=== PATIENT | female | born 1940 | race Caucasian/White ===

== ENCOUNTER 2021-04-08 08:58 | Emergency (ER) | payer MEDICARE ==
[~2021-04-08] VITALS: Ht 165.1 cm; Wt 57.6 kg
[2021-04-08] MEDS ORDERED: IV NORMAL SALINE 1000ML BAG 1,000 ML IV ONE (09:30)
[2021-04-08] MEDS ORDERED: ONDANSETRON PF 4 MG/2 ML VIAL. IVP ONE (09:30)
[2021-04-08] MEDS ORDERED: MECLIZINE HCL 12.5 MG TABLET. PO ONE (09:30)
[2021-04-08 09:53] LABS: BASO % 1 % (0-3); EOS # 0.2 x10^3/uL (0.0-0.7); EOS % 4 % (0-3); HEMATOCRIT 38.6 % (36.0-47.0); HEMOGLOBIN 12.7 g/dL (12.0-15.5); LYMPH # 1.6 x10^3/uL (1.0-4.8); LYMPH % 26 % (24-48); MEAN CORPUSCULAR HEMOGLOBIN 28 pg (25-35); MEAN CORPUSCULAR HGB CONC 33 g/dL (31-37); MEAN CORPUSCULAR VOLUME 85 fL (79-100); MONO # 0.5 x10^3/uL (0.0-1.1); MONO % 8 % (0-9); NEUT # 3.7 x10^3/uL (1.8-7.7); NEUT % 62 % (31-73); PLATELET COUNT 219 x10^3/uL (140-400); RED BLOOD COUNT 4.56 x10^6/uL (3.50-5.40); RED CELL DISTRIBUTION WIDTH 13.4 % (11.5-14.5)
[2021-04-08 10:02] LABS: CALCIUM 8.6 mg/dL (8.5-10.1); CREATININE 0.7 mg/dL (0.6-1.0); GFR 80.9; POTASSIUM 3.8 mmol/L (3.5-5.1)
[2021-04-08 10:08] LABS: ALBUMIN 3.4 g/dL (3.4-5.0); ALBUMIN/GLOBULIN RATIO 0.9 (1.0-1.7); TOTAL BILIRUBIN 0.9 mg/dL (0.2-1.0); TOTAL PROTEIN 7.4 g/dL (6.4-8.2)
--- NOTE | 2021-04-08 10:08 | PHYS DOC ---
General Adult EDM: Chief Complaint: DIZZY/LIGHT HEADED HPI: HPI: Patient is a 80 year old female who presents with dizziness and nausea since last night. Patient states that she was getting out of her car when she noticed she was off balance. Patient states "I feel like I am spinning". Reports that standing makes symptoms worse. Patient denies anything making the symptoms better. Denies taking anything at home for symptoms. Denies chest pain, shortness of breath, pain. Denies recent illness. Patient states "I had vertigo 5 years ago and this feels very similar to then". Patient is alert and oriented. Patient has history of hypothyroidism. Review of Systems: Review of Systems: ROS At least 10 ROS systems have been reviewed and are negative except as documented in the HPI. General: Negative except as outlined in HPI above. Skin: Negative except as outlined in HPI above. HEENT: Negative except as outlined in HPI above. Neck: Negative except as outlined in HPI above. Respiratory: Negative except as outlined in HPI above.. Cardiovascular: Negative except as outlined in HPI above. Abdomen: Negative except as outlined in HPI above. : Negative except as outlined in HPI above. Back/MSK: Negative except as outlined in HPI above. Neuro: Negative except as outlined in HPI above. Psych: Negative except as outlined in HPI above. Heart Score: C/O Chest Pain: No Risk Factors: Risk Factors: DM, Current or recent (<one month) smoker, HTN, HLP, family history of CAD, obesity. Risk Scores: Score 0 - 3: 2.5% MACE over next 6 weeks - Discharge Home Score 4 - 6: 20.3% MACE over next 6 weeks - Admit for Clinical Observation Score 7 - 10: 72.7% MACE over next 6 weeks - Early Invasive Strategies Current Medications: Current Medications Medications (Trade) Dose Ordered Sig/Jesus Start Time Stop Time Status Last Admin Dose Admin Meclizine HCl (Antivert) 25 mg 1X ONCE 04/08/21 09:30 04/08/21 09:31 UNV Ondansetron HCl (Zofran) 4 mg 1X ONCE 04/08/21 09:30 04/08/21 09:31 UNV Sodium Chloride 1,000 ml @ 1,000 mls/hr 1X ONCE 04/08/21 09:30 04/08/21 10:29 UNV Physical Exam: PE: Constitutional: Well developed, well nourished, no acute distress, non-toxic appearance. [] HENT: Normocephalic, atraumatic, bilateral external ears normal, oropharynx moist, no oral exudates, nose normal. [] Eyes: PERRLA, EOMI, conjunctiva normal, no discharge. [] Neck: Normal range of motion, no tenderness, supple, no stridor. [] Cardiovascular:Heart rate regular rhythm, no murmur [] Lungs & Thorax: Bilateral breath sounds clear to auscultation [] Abdomen: Bowel sounds normal, soft, no tenderness, no masses, no pulsatile masses. [] Skin: Warm, dry, no erythema, no rash. [] Back: No tenderness, no CVA tenderness. [] Extremities: No tenderness, no cyanosis, no clubbing, ROM intact, no edema. [] Neurologic: Alert and oriented X 3, dizziness, normal sensory function, no focal deficits noted. [] Psychologic: Affect normal, judgement normal, mood normal. [] EKG: EKG: sinus rhythm. HR 52 BPM.[] Radiology/Procedures: Radiology/Procedures: []EXAM: XR CHEST 1V 04/08/2021 9:56 AM CLINICAL INDICATION: Dizziness COMPARISON: None TECHNIQUE: AP upright view of the chest FINDINGS: The heart is normal in size. Lungs are hyperexpanded. No consolidation, pleural effusion, or pneumothorax. There are suture anchors in the right humeral head. IMPRESSION: No acute cardiopulmonary abnormality. Electronically signed by: Betsy Ball MD (04/08/2021 10:58 AM) [id number] CT HEAD/BRAIN WO Date: 04/08/2021 10:04 AM Clinical Indication: DIZZY Comparison: None. Technique: 5 mm axial tomographic images were obtained of the head without contrast. These were viewed on brain and bone windows. One or more of the following dose reduction techniques were utilized: Automated exposure control (AEC), Adjustment of mA and/or kV according to patient size, Use of iterative reconstruction technique such as ASiR, CT scan done according to ALARA and image gently/image wisely Findings: Mild generalized cerebral and cerebellar volume loss. Mild nonspecific periventricular hypoattenuation, most commonly seen with chronic small vessel ischemic disease. Calcified atherosclerosis of the bilateral cavernous and paraclinoid internal carotid arteries and intracranial vertebral arteries. No intra- or extra-axial mass or fluid collection. No acute hemorrhage. The ventricles are normal in size, shape, and morphology. The dale-white matter junction is normal. The subarachnoid cisterns are patent. The visualized paranasal sinuses are normal. The visualized portions of the orbits and globes are normal. The mastoid air cells are clear. The heel seat laster topogram shows no lytic lesion or fracture. Impression: No acute intracranial process. Mild cerebral volume loss. Mild chronic small vessel ischemic disease. Electronically signed by: Mike Santoro MD (04/08/2021 11:12 AM) [id number] Course & Med Decision Making: Course & Med Decision Making pertinent Labs and Imaging studies reviewed. (See chart for details) 80-year-old female who presents with dizziness and nausea and vomiting since last night. Work-up in ER consist of EKG, blood work, UA, chest x-ray, CT head. Patient treated with meclizine, Zofran, NS bolus. Patient states that symptoms have improved after medication was administered. Urine is positive for large leuks, WBC 2040. Patient sent home with antibiotic for UTI. All labs are unremarkable. CT head and chest x-ray are both unremarkable. Discussed all results with patient. Patient symptoms are most likely from vertigo. Patient sent home with meclizine along with Zofran to help with symptoms. Advised patient to increase fluids. If symptoms do not improve patient needs to follow-up with her PCP in the next 2 to 3 days. Discussed return precautions in length with patient. Patient verbalizes understanding of discharge instructions. Dragon Disclaimer: Natasha Disclaimer: This electronic medical record was generated, in whole or in part, using a voice recognition dictation system. Departure Departure Impression: Primary Impression: Dizziness Additional Impression: UTI (urinary tract infection) Qualified Codes: N30.00 - Acute cystitis without hematuria Disposition: HOME / SELF CARE / HOMELESS Condition: STABLE Patient Instructions: Vertigo, [id number] Additional Instructions: You were seen in the emergency room for dizziness. Your symptoms improved after medication administration. I am sending you home with prescription for Zofran and meclizine. Make sure to increase your fluids. If your symptoms worsen or if you have any concerns please return to the emergency room. If your symptoms do not improve please follow-up with your PCP for further management. You may need a follow-up with ENT. EMERGENCY DEPARTMENT GENERAL DISCHARGE INSTRUCTIONS Thank you for coming to [facility] Emergency Department (ED) today and trusting us with you care. We trust that you had a positive experience in our Emergency Department. If you wish to speak to the department management, you may call the Director at [phone]. YOUR FOLLOW UP INSTRUCTIONS ARE FOLLOWS: 1. Do you have a private Doctor? If you do not have a private doctor, please ask for a resource list of physicians or clinics that may be able to assist you with follow up care. 2. The Emergency Physicain has interpreted your x-rays. The X-Ray specialist will also review them. If there is a change in the findings, you will be notified in 48 hours when at all possible. 3. A lab test or culture has been done, your results will be reviewed and you will be notified if you need a change in treatment. ADDITIONAL INSTRUCTIONS AND INFORMATION: 1. Your care today has been supervised by a physician who is specially trained in emergency care. Many problems require more than one evaluation for a complete diagnosis and treatment. We recommend that you schedule your follow up appointment as recommended to ensure complete treatment of you illness or injury. If you are unable to obtain follow up care and continue to have a problem, or if your condition worsens, we recommend that you return to the ED. 2. We are not able to safely determine your condition over the phone nor are we able to give sound medical advice over the phone. For these safety reasons, if you call for medical advice we will ask you to come to the ED for further evaluation. 3. If you have any questions regarding these discharge instructions please call the ED at [phone]. SAFETY INFORMATION: In the interest of safety, wellness, and injury prevention; we encourage you to wear your sealbelt, if you smoke; quite smoking, and we encourage family to use a protective helmet for bicycling and other sporting events that present an increased risk for head injury. IF YOUR SYMPTOMS WORSEN OR NEW SYMPTOMS DEVELOP, OR YOU HAVE CONCERNS ABOUT YOUR CONDITION; OR IF YOUR CONDITION WORSENS WHILE YOU ARE WAITING FOR YOUR FOLLOW UP APPOINTMENT; EITHER CONTACT YOUR PRIMARY CARE DOCTOR, THE PHYSICIAN WHOSE NAME AND NUMBER YOU WERE GIVEN, OR RETURN TO THE ED IMMEDIATELY. Scripts Cephalexin (CEPHALEXIN) 500 Mg Tablet 1 TAB PO BID for uti for 7 Days, #14 TAB Prov: KESHA HYLTON APRN 04/08/21 Ondansetron Hcl (ZOFRAN) 4 Mg Tablet 1 TAB PO Q6HRS PRN for NAUSEA/VOMITING for 4 Days, #16 TAB 0 Refills Prov: KESHA HYLTON APRN 04/08/21 Meclizine Hcl (MECLIZINE HCL) 25 Mg Tablet 1 TAB PO PRN TID for dizziness, #30 TAB Prov: KESHA HYLTON APRN 04/08/21 KESHA HYLTON APRN Apr 08, 2021 10:08
[2021-04-08 10:47] LABS: BILIRUBIN,URINE NEGATIVE (NEG); CLARITY,URINE CLEAR; COLOR,URINE YELLOW; NITRITE,URINE NEGATIVE (NEG); PROTEIN,URINE NEGATIVE (NEG-TRACE); UROBILINOGEN,URINE 0.2 mg/dL (0.2 mg/dL)
--- NOTE | 2021-04-08 11:00 | RAD ---
EXAM: XR CHEST 1V 04/08/2021 9:56 AM CLINICAL INDICATION: Dizziness COMPARISON: None TECHNIQUE: AP upright view of the chest FINDINGS: The heart is normal in size. Lungs are hyperexpanded. No consolidation, pleural effusion, or pneumothorax. There are suture anchors in the right humeral head. IMPRESSION: No acute cardiopulmonary abnormality. Electronically signed by: Betsy Ball MD (04/08/2021 10:58 AM) [id number]
[2021-04-08 11:11] LABS: BACTERIA,URINE MODERATE /HPF (0-FEW); RBC,URINE 0 /HPF (0-2); WBC,URINE 20-40 /HPF (0-4)
--- NOTE | 2021-04-08 11:15 | RAD ---
CT HEAD/BRAIN WO Date: 04/08/2021 10:04 AM Clinical Indication: DIZZY Comparison: None. Technique: 5 mm axial tomographic images were obtained of the head without contrast. These were view ed on brain and bone windows. One or more of the following dose reduction techniques were utilized: A utomated exposure control (AEC), Adjustment of mA and/or kV according to patient size, Use of iterati ve reconstruction technique such as ASiR, CT scan done according to ALARA and image gently/image emmanuel ly Findings: Mild generalized cerebral and cerebellar volume loss. Mild nonspecific periventricular hypoattenuatio n, most commonly seen with chronic small vessel ischemic disease. Calcified atherosclerosis of the bi lateral cavernous and paraclinoid internal carotid arteries and intracranial vertebral arteries. No intra- or extra-axial mass or fluid collection. No acute hemorrhage. The ventricles are normal in size, shape, and morphology. The dale-white matter junction is normal. The subarachnoid cisterns are patent. The visualized paranasal sinuses are normal. The visualized portions of the orbits and globes are no rmal. The mastoid air cells are clear. The taxicab starter topogram shows no lytic lesion or fracture. Impression: No acute intracranial process. Mild cerebral volume loss. Mild chronic small vessel ischemic disease. Electronically signed by: Mike Santoro MD (04/08/2021 11:12 AM) [id number]
[2021-04-08] MEDS ORDERED: MECL-75 PO (11:29)
[2021-04-08] MEDS ORDERED: ONDA4TAB7 PO (11:29)
--- NOTE | 2021-04-08 11:40 | EKG ---
[facility] [address] [place] [address] Test Date: 2021-04-08 Test Time: 09:19:41 Pat Name: JOSEPH BARKSDALE Department: Room: Gender: F Product Support Consultant: : 1940 Requested By: KESHA HYLTON Order Number: [id number] Reading MD: Ziyad Calixto Measurements Intervals [place] Rate: 52 P: 61 TX: 170 QRS: 48 QRSD: 82 T: 64 QT: 438 QTc: 409 Interpretive Statements SINUS RHYTHM Electronically Signed On 04-09-2021 7:58:50 HUMAN RESOURCES TECHNICIAN by Ziyad Calixto
[2021-04-08] MEDS ORDERED: CEPH500T PO (12:24)
[2021-04-08 14:45] VITALS: BP 128/60
== END 2021-04-08 14:58 | disposition home or self-care (01) ==
LOC: ER 08:58
DX: N30.00 Acute cystitis without hematuria (principal); R42 Dizziness and giddiness
CPT/HCPCS: 36415; 70450; 71045; 80053; 81001; 84484; 85025; 87086; 93005; 96361; 96374; 99285; J2405; J7030; J8597

== ENCOUNTER 2021-07-03 10:13 | Emergency (ER) | payer MEDICARE ==
[~2021-07-03] VITALS: Ht 165.1 cm; Wt 58.2 kg
[~2021-07-03 10:13] MED LIST: CEPH500T PO; MECL-75 PO; ONDA4TAB7 PO
--- NOTE | 2021-07-03 10:51 | EKG ---
[facility] [address] [place] [address] Test Date: 2021-07-03 Test Time: 10:30:08 Pat Name: JOSEPH BARKSDALE Department: Room: Gender: F Tabulating Clerk: : 1940 Requested By: KIARA SOLIS Order Number: [id number] Reading MD: Roderick Khan MD Measurements Intervals [place] Rate: 60 P: 67 [place]: 164 QRS: 52 QRSD: 74 T: 63 QT: 382 QTc: 382 Interpretive Statements SINUS RHYTHM Consider septal infarct Electronically Signed On 07-04-2021 17:40:03 CDT by Roderick Khan MD
--- NOTE | 2021-07-03 10:54 | PHYS DOC ---
Past Medical History Additional Past Medical Histor: EAR PROBLEMS, BREAST CANCER Past Surgical History: Appendectomy, Hysterectomy, Tonsillectomy, Other Additional Past Surgical Histo: RIGHT KNEE, L ARM, SHOULDERS Smoking Status: Never Smoker Alcohol Use: None General Adult EDM: Chief Complaint: SHORTNESS OF BREATH HPI: HPI: 80-year-old female past medical history of hypothyroidism and seasonal allergies, presents to the ED with complaints of shortness of breath, headache, nasal congestion, cough, chest pressure and shortness of breath for the past week. Called her primary care physician who prescribed her azithromycin and prednisone. Has been vaccinated bistro for Covid. Is no history of Covid infection. Has no underlying lung disease, denies COPD or asthma. Denies any associated orthopnea, exertional dyspnea, leg swelling or hemoptysis. No history of congestive heart failure or cardiac disease/no congestive heart failure. Review of Systems: Review of Systems: Constitutional: Denies fever or chills. [] Eyes: Denies change in visual acuity. [] HENT: Denies sore throat or rhinorrhea PULM: Deneis hemoptysis or increased work of breathing Cardiovascular: Denies syncope or edema. [] GI: Denies abdominal pain, nausea, vomiting, bloody stools or diarrhea. [] : Denies dysuria or hematuria Musculoskeletal: Denies back pain or joint pain. [] Integument: Denies rash or diaphoresis Neurologic: Denies headache, focal weakness or sensory changes. [] Endocrine: Denies polyuria or polydipsia. [] Lymphatic: Denies swollen glands. [] Psychiatric: Denies depression or anxiety. [] Heart Score: C/O Chest Pain: Yes HEART Score for Chest Pain: HEART Score for Chest Pain Response (Comments) Value History Slighlty/Non-Suspicious 0 ECG Normal 0 Age > 65 2 Risk Factors 1 or 2 Risk Factors 1 Troponin < Normal Limit 0 Total 3 Risk Factors: Risk Factors: DM, Current or recent (<one month) smoker, HTN, HLP, family history of CAD, obesity. Risk Scores: Score 0 - 3: 2.5% MACE over next 6 weeks - Discharge Home Score 4 - 6: 20.3% MACE over next 6 weeks - Admit for Clinical Observation Score 7 - 10: 72.7% MACE over next 6 weeks - Early Invasive Strategies Allergies: Allergies: Allergies Coded Allergies Type Severity Reaction Last Updated Verified Sulfa (Sulfonamide Antibiotics) Allergy Severe 07/03/21 Yes Tetracyclines Allergy Severe 07/03/21 Yes acetaminophen Allergy Severe 07/03/21 Yes aspirin Allergy Severe 07/03/21 Yes erythromycin base Allergy Severe 07/03/21 Yes ibuprofen Allergy Severe Nausea and Vomiting 07/03/21 Yes meperidine Allergy Severe 07/03/21 Yes mometasone furoate Allergy Severe 07/03/21 Yes ofloxacin Allergy Severe 07/03/21 Yes oxycodone Allergy Severe 07/03/21 Yes piroxicam Allergy Severe 07/03/21 Yes propoxyphene Allergy Severe 07/03/21 Yes Penicillins Allergy Intermediate 07/03/21 Yes ciprofloxacin Allergy Intermediate 07/03/21 Yes Physical Exam: PE: Constitutional: Well developed, well nourished, no acute distress, non-toxic appearance, nasal voice, HENT: Normocephalic, atraumatic, no pharyngeal erythema or exudates, normal tympanic membranes, Eyes: EOMI, conjunctiva normal, no discharge. Neck: Normal range of motion, supple, Cardiovascular: S1/2 present, regular rhythm Lungs & Thorax: Speaking in full sentences, bilateral equal chest rise, no tachypnea or increased work of breathing, clear lung sounds bilaterally with no rales/crackles/wheezing, cough present in ED Abdomen: soft, no tenderness, Skin: Warm, dry, no erythema, no rash. [] Back: No tenderness, no CVA tenderness. [] Extremities: No tenderness, no cyanosis, no lower extremity edema Neurologic: Alert and oriented X 3, normal motor function, normal sensory function, no focal deficits noted. [] Psychologic: Affect normal, judgement normal, mood normal. [] Current Patient Data: Vital Signs: Vital Signs Date Time Temp Pulse Resp B/P (MAP) Pulse Ox O2 Delivery O2 Flow Rate FiO2 07/03/21 10:19 98.1 66 30 147/67 (93) 100 Room Air 98.1 EKG: EKG: Sinus rhythm 60 bpm, no axis deviation, normal intervals, no T wave inversion, no ST elevation or ST depression sinus rhythm 62 bpm, no axis deviation, normal intervals, no T wave inversion, ST elevation or ST depression Radiology/Procedures: Radiology/Procedures: IMAGING REPORT Signed PATIENT: BARKSDALEJOSEPH ACCOUNT: [id number] : 1940 LOCATION: ER AGE: 80 SEX: F EXAM STATUS: PRE ER ORD. PHYSICIAN: KIARA SOLIS DO REASON: soa PROCEDURE: PORTABLE CHEST 1V AP chest. HISTORY: Short of air AP view was taken of the chest. Lungs are clear. Heart is normal in size. There is no pleural effusion. Patient had previous surgery at the right shoulder. IMPRESSION: 1. No acute chest disease. Electronically signed by: Marcos Vásquez MD (07/03/2021 11:10 AM) [facility] DICTATED and SIGNED BY: MARCOS VÁSQUEZ MD DATE: 07/03/211108 Course & Med Decision Making: Course & Med Decision Making Pertinent Labs and Imaging studies reviewed. (See chart for details) Concern for URI/cough/sinusitis x 7 days, no improvement on prednisone and azithromycin. Patient's chest pain has been present for more than 24 hours-2 troponins are in normal range. EKG with no ischemia. D-dimer wnl. Chest x-ray with no pneumonia. Patient no lower extremity swelling, JVD, exertional dyspnea or orthopnea and has no history of CHF. I recommended to discontinue azithromycin and start cefdinir to cover for sinusitis. Will also add Tessalon Perles. Patient is afebrile, well-appearing and not requiring supplemental oxygen. Has no tachypnea on physical exam. Will discharge home with strict ED return precautions were given for increased work of breathing, worsening fever, hemoptysis or difficulty speaking. Encouraged urgent outpatient follow-up with PMD for reevaluation. Life-threatening processes were considered but are low suspicion at this time, given history, physical exam and ED workup. Pt was educated on all prescription medications and adverse effects. All patient's questions were answered and pt was stable at time of discharge. Life/limb-threatening differential includes but is not limited to, ACS, dy srhythmia, pneumothorax or hemothorax, pulmonary embolus, pneumonia, bronchoconstriction, pulmonary edema, angioedema, epiglottitis, tracheitis, Abhinav's angina, RPA/[employer]PPLY SUPERVISOR, anaphylaxis, angioedema, cardiac tamponade or murmurs, pericarditis, myocarditis, poisoning or toxicity, sepsis or autoimmune/neurologic disease. I have spoken with the patient and/or caregivers. I explained the patient's condition, diagnoses and treatment plan based on the information available to me at this time. I have answered the patient and/or caregiver's questions and addressed any concerns. The patient and/or caregivers have a good understanding of patient's diagnosis, condition and treatment plan as can be expected at this point. Vital signs have been stable. Patient's condition is stable and appropriate for discharge from the emergency department. Patient will pursue further outpatient evaluation with primary care physician or other designated or consulting physician as outlined in the discharge instructions. The patient and/or caregivers are agreeable to this plan of care and follow-up instructions have been explained in detail. The patient and/or caregivers have received these instructions in written form and have expressed an understanding of the discharge instructions. The patient and/or caregivers are aware that any significant change of condition or worsening of symptoms should prompt immediate return to this or the closest emergency department or call to 911. Natasha Disclaimer: Natasha Disclaimer: This electronic medical record was generated, in whole or in part, using a voice recognition dictation system. Departure Departure Impression: Primary Impression: Dyspnea Additional Impression: Sinusitis Disposition: HOME / SELF CARE / HOMELESS Condition: STABLE Referrals: NON,STAFF (PCP) Follow-up with your primary care physician in 24 to 48 hours OR FOLLOW UP WITH FAMILY MEDICINE: [address] [facility] [place] [address] Patient Instructions: Shortness of Breath, Sinusitis Additional Instructions: EMERGENCY DEPARTMENT GENERAL DISCHARGE INSTRUCTIONS Thank you for coming to [facility] Emergency Department (ED) toradha y and trusting us with you care. We trust that you had a positive experience in our Emergency Department. If you wish to speak to the department management, you may call the Director at [phone]. YOUR FOLLOW UP INSTRUCTIONS ARE FOLLOWS: 1. Do you have a private Doctor? If you do not have a private doctor, please ask for a resource list of physicians or clinics that may be able to assist you with follow up care. 2. The Emergency Physicain has interpreted your x-rays. The X-Ray specialist will also review them. If there is a change in the findings, you will be notified in 48 hours when at all possible. 3. A lab test or culture has been done, your results will be reviewed and you will be notified if you need a change in treatment. ADDITIONAL INSTRUCTIONS AND INFORMATION: 1. Your care today has been supervised by a physician who is specially trained in emergency care. Many problems require more than one evaluation for a complete diagnosis and treatment. We recommend that you schedule your follow up appointment as recommended to ensure complete treatment of you illness or injury. If you are unable to obtain follow up care and continue to have a problem, or if your condition worsens, we recommend that you return to the ED. 2. We are not able to safely determine your condition over the phone nor are we able to give sound medical advice over the phone. For these safety reasons, if you call for medical advice we will ask you to come to the ED for further evaluation. 3. If you have any questions regarding these discharge instructions please call the ED at [phone]. SAFETY INFORMATION: In the interest of safety, wellness, and injury prevention; we encourage you to wear your sealbelt, if you smoke; quite smoking, and we encourage family to use a protective helmet for bicycling and other sporting events that present an increased risk for head injury. IF YOUR SYMPTOMS WORSEN OR NEW SYMPTOMS DEVELOP, OR YOU HAVE CONCERNS ABOUT YOUR CONDITION; OR IF YOUR CONDITION WORSENS WHILE YOU ARE WAITING FOR YOUR FOLLOW UP APPOINTMENT; EITHER CONTACT YOUR PRIMARY CARE DOCTOR, THE PHYSICIAN WHOSE NAME AND NUMBER YOU WERE GIVEN, OR RETURN TO THE ED IMMEDIATELY. Scripts Cefdinir (CEFDINIR) 300 Mg Capsule 1 CAP PO BID for 10 Days, #20 CAP Prov: KIARA SOLIS DO 07/03/21 Benzonatate (Benzonatate) 150 Mg Capsule 1 CAP PO TID PRN for COUGH for 7 Days, #21 CAP 0 Refills Prov: KIARA SOLIS DO 07/03/21 KIARA SOLIS DO Jul 03, 2021 10:54
[2021-07-03 10:59] LABS: CALCIUM 8.7 mg/dL (8.5-10.1); CREATININE 0.7 mg/dL (0.6-1.0); GFR 80.9; POTASSIUM 3.9 mmol/L (3.5-5.1)
[2021-07-03 11:05] LABS: ALBUMIN 3.7 g/dL (3.4-5.0); DIRECT BILIRUBIN 0.1 mg/dL (0.0-0.2); MAGNESIUM 2.2 mg/dL (1.8-2.4); TOTAL BILIRUBIN 0.4 mg/dL (0.2-1.0); TOTAL PROTEIN 7.6 g/dL (6.4-8.2)
--- NOTE | 2021-07-03 11:12 | RAD ---
AP chest. HISTORY: Short of air AP view was taken of the chest. Lungs are clear. Heart is normal in size. There is no pleural effusio n. Patient had previous surgery at the right shoulder. IMPRESSION: 1. No acute chest disease. Electronically signed by: Marcos Ponce MD (07/03/2021 11:10 AM) [facility]
[2021-07-03 11:13] LABS: BASO % 0 % (0-3); EOS % 0 % (0-3); HEMATOCRIT 38.2 % (36.0-47.0); HEMOGLOBIN 12.5 g/dL (12.0-15.5); LYMPH # 1.6 x10^3/uL (1.0-4.8); LYMPH % 16 % (24-48); MEAN CORPUSCULAR HEMOGLOBIN 28 pg (25-35); MEAN CORPUSCULAR HGB CONC 33 g/dL (31-37); MEAN CORPUSCULAR VOLUME 85 fL (79-100); MONO # 0.6 x10^3/uL (0.0-1.1); MONO % 6 % (0-9); NEUT % 78 % (31-73); PLATELET COUNT 286 x10^3/uL (140-400); RED BLOOD COUNT 4.52 x10^6/uL (3.50-5.40); RED CELL DISTRIBUTION WIDTH 13.1 % (11.5-14.5); WHITE BLOOD COUNT 10.3 x10^3/uL (4.0-11.0)
[2021-07-03 11:23] LABS: INFLUENZA A PATIENT NEGATIVE (NEGATIVE); INFLUENZA B PATIENT NEGATIVE (NEGATIVE)
[2021-07-03 12:50] LABS: AMPHETAMINE/METHAMPHETAMINE NEG (NEG); BARBITURATES NEG (NEG); BENZODIAZEPINES NEG (NEG); CANNABINOIDS NEG (NEG); COCAINE NEG (NEG); METHADONE NEG (NEG); OPIATES NEG (NEG); PHENCYCLIDINE NEG (NEG)
[2021-07-03 13:02] LABS: BACTERIA,URINE FEW /HPF (0-FEW); RBC,URINE 0 /HPF (0-2)
--- NOTE | 2021-07-03 13:45 | EKG ---
[facility] [address] [place] [id number] Test Date: 2021-07-03 Test Time: 11:40:47 Pat Name: JOSEPH BARKSDALE Department: Room: Gender: F Mac Operator: : 1940 Requested By: KIARA SOLIS Order Number: [id number] Reading MD: Roderick Khan MD Measurements Intervals Ragan Rate: 62 P: 39 DC: 168 QRS: 49 QRSD: 76 T: 56 QT: 398 QTc: 406 Interpretive Statements SINUS RHYTHM QRS(T) CONTOUR ABNORMALITY CONSISTENT WITH ANTEROSEPTAL INFARCT PROBABLY OLD ABNORMAL ECG Electronically Signed On 07-04-2021 17:38:58 CDT by Roderick Khan MD
[2021-07-03] MEDS ORDERED: DOXY100C3 PO (14:21)
[2021-07-03] MEDS ORDERED: BENZ150C3 PO (14:21)
[2021-07-03] MEDS ORDERED: CEFD300C PO (14:40)
[2021-07-03 15:00] VITALS: BP 124/65
== END 2021-07-03 15:00 | disposition home or self-care (01) ==
LOC: ER 10:13
DX: J32.9 Chronic sinusitis, unspecified (principal); R06.02 Shortness of breath; Z20.822 Contact with and (suspected) exposure to COVID-19; E03.9 Hypothyroidism, unspecified; Z88.1 Allergy status to other antibiotic agents; Z88.2 Allergy status to sulfonamides; Z88.6 Allergy status to analgesic agent; Z88.0 Allergy status to penicillin; Z88.8 Allergy status to other drugs, medicaments and biological substances
CPT/HCPCS: 36415; 71045; 80048; 80076; 80307; 81001; 83690; 83735; 83880; 84484; 85025; 85379; 87428; 93005; 99285; C9803; U0003